=== PATIENT | female | born 1985 | race Caucasian/White ===

== ENCOUNTER 2018-03-09 19:01 | Emergency (ER) | payer OTHER ==
--- NOTE | 2018-03-09 19:58 | EDM.PDOC ---
ED HPI GENERAL MEDICAL PROBLEM - General Chief Complaint: Genitourinary Problem Stated Complaint: BLOOD IN URINE/BACK PAIN Time Seen by Provider: 03/09/18 19:58 Source of Information: Reports: Patient History Limitations: Reports: No Limitations - History of Present Illness INITIAL COMMENTS - FREE TEXT/NARRATIVE: Ulises presents tonight for complaints of dysuria and right sided back pain since this morning. She reports she and her loaded up their vehicle today, drove 8 hours and are up in [place] for vacation this week. She denies fever, chills, nausea, vomiting or voiding blood. Pain Score (Numeric/FACES): 8 - Related Data Allergies Allergy/AdvReac Type Severity Reaction Status Date / Time No Known Allergies Allergy Verified 03/09/18 19:35 Home Meds: Home Meds ALPRAZolam [Xanax] 0.5 mg PO TID 03/09/18 [History] Cariprazine Hydrochloride [Vraylar] 3 mg PO DAILY 03/09/18 [History] Gabapentin [Neurontin] 300 mg PO TID 03/09/18 [History] Omeprazole Magnesium [Prilosec Otc] 40 mg PO DAILY 03/09/18 [History] Past Medical History Gastrointestinal History: Reports: GERD Psychiatric History: Reports: Anxiety, Bipolar Social & Family History - Tobacco Use Smoking Status *Q: Current Every Day Smoker Years of Tobacco use: 15 Packs/Tins Daily: 1 - Caffeine Use Caffeine Use: Reports: Energy Drinks, Soda - Recreational Drug Use Recreational Drug Use: No ED ROS GENERAL - Review of Systems Review Of Systems: See Below Constitutional: Denies: Fever, Chills, Malaise, Weakness HEENT: Reports: No Symptoms Respiratory: Reports: No Symptoms Cardiovascular: Reports: No Symptoms Endocrine: Reports: No Symptoms GI/Abdominal: Denies: Black Stool, Bloody Stool, Constipation, Diarrhea, Nausea , Vomiting : Reports: Dysuria. Denies: Frequency, Hematuria, Incontinence, Irregular Menses, Urinary Retention Musculoskeletal: Reports: Muscle Pain, Muscle Stiffness, Other (right sided back pain) Skin: Reports: No Symptoms Neurological: Reports: No Symptoms Psychiatric: Reports: No Symptoms Hematologic/Lymphatic: Reports: No Symptoms Immunologic: Reports: No Symptoms ED EXAM, GI/ABD - Physical Exam Exam: See Below Text/Narrative:: Ulises presents today with complaints of dysuria and right sided back pain since this morning. She denies fever, chills, nausea or other concerns. LMP 02/23/18 - no issues. General Appearance: Alert, WD/WN, No Apparent Distress Eyes: Bilateral: Normal Appearance, EOMI Throat/Mouth: Normal Inspection, Normal Lips, Normal Teeth, Normal Gums, Normal Oropharynx, Normal Voice, No Airway Compromise Head: Atraumatic, Normocephalic Neck: Normal Inspection, Supple, Non-Tender, Full Range of Motion. No: Lymphadenopathy (R), Lymphadenopathy (L) Respiratory/Chest: No Respiratory Distress, Lungs Clear, Normal Breath Sounds, No Accessory Muscle Use, Chest Non-Tender Cardiovascular: Normal Peripheral Pulses, Regular Rate, Rhythm, No Edema, No Murmur, No Rub GI/Abdominal Exam: Normal Bowel Sounds, Soft, Non-Tender, No Organomegaly, No Distention, No Mass Back Exam: Full Range of Motion, Muscle Spasm, Other (Pain and muscle spasm to right lower back. ). No: CVA Tenderness (R), CVA Tenderness (L) Extremities: Normal Inspection, Normal Range of Motion, Non-Tender, No Pedal Edema, Normal Capillary Refill Neurological: Alert, Oriented, CN II-XII Intact, Normal Cognition, Normal Gait, Normal Reflexes, No Motor/Sensory Deficits Psychiatric: Normal Affect, Normal Mood Skin Exam: Warm, Dry, Intact, Normal Color, No Rash Lymphatic: No Adenopathy Course - Vital Signs Last Recorded V/S: Last Vital Signs Temp 36.1 C 03/09/18 19:34 Pulse 79 03/09/18 19:34 Resp 18 03/09/18 19:34 BP 148/92 H 03/09/18 19:34 Pulse Ox 98 03/09/18 19:34 - Orders/Labs/Meds Orders: Active Orders 24 hr Category Date Time Status UA W/MICROSCOPIC [URIN] Stat Lab 03/09/18 19:00 Ordered Labs: Laboratory Tests 03/09/18 Range/Units 19:00 Urine Color Yellow Urine Appearance Clear Urine pH 6.0 (4.5-8.0) Ur Specific [place] 1.010 (1.008-1.030) Urine Protein Negative (NEGATIVE) mg/dL Urine Glucose (UA) Normal (NEGATIVE) mg/dL Urine Ketones Negative (NEGATIVE) mg/dL Urine Occult Blood Negative (NEGATIVE) Urine Nitrite Negative (NEGATIVE) Urine Bilirubin Negative (NEGATIVE) Urine Urobilinogen Normal (NORMAL) mg/dL Ur Leukocyte Esterase Negative (NEGATIVE) Urine RBC Not seen (0-5) Urine WBC 0-5 (0-5) Ur Epithelial Cells Rare Amorphous Sediment Not seen Urine Bacteria Few Urine Mucus Not seen UA negative for acute infection or RBC. Wet prep positive for clue cells. Bacteria vaginosis Meds: Medications Discontinued Medications Generic Name Dose Route Start Last Admin Trade Name Mitch PRN Reason Stop Dose Admin Hydrocodone Bitart/Acetaminophen 1 tab 03/09/18 20:11 03/09/18 20:16 [place] 325-5 Mg PO 03/09/18 20:12 1 tab ONETIME ONE Administration Cyclobenzaprine HCl 10 mg 03/09/18 20:12 03/09/18 20:16 Flexeril PO 03/09/18 20:13 10 mg ONETIME ONE Administration Metronidazole 500 mg 03/09/18 20:42 03/09/18 20:50 Metronidazole PO 03/09/18 20:43 500 mg ONETIME ONE Administration - Re-Assessments/Exams Free Text/Narrative Re-Assessment/Exam: 03/09/18 20:45 Reviewed lab work, presentation. Patient verbalized improvement of pain/muscle spasm to back. All her and her husbands questions were answered. She is in agreement with plan. Departure - Departure Time of Disposition: 20:47 Disposition: Home, Self-Care 01 Condition: Good Clinical Impression: Bacterial vaginosis, Spasm of muscle of lower back - Discharge Information Referrals: PCP,None [Primary Care Provider] - Forms: ED Department Discharge Additional Instructions: You have been evaluated and treated for bacterial vaginosis and muscle spasm of your lower back. Take metronidazole 500mg by mouth twice a day for 7 days (first dose in ER) for bacterial vaginosis. A prescription is provided for diflucan 150mg PO for signs of yeast infection. Take cyclobenzaprine 10mg PO three times a day for muscle spasm as needed. Take ibuprofen 800mg PO three times a day as needed for pain. Take with food. Stretch, apply heat/ice to back to help with pain. Return for worsening, issues or concerns. - My Orders Last 24 Hours: My Active Orders 03/09/18 19:00 UA W/MICROSCOPIC [URIN] Stat - Assessment/Plan Last 24 Hours: My Active Orders 03/09/18 19:00 UA W/MICROSCOPIC [URIN] Stat Assessment:: Spasm of muscle of lower back Bacterial vaginosis Plan: Patient evaluated and treated for bacterial vaginosis and muscle spasm of lower back. Take metronidazole 500mg by mouth twice a day for 7 days (first dose in ER) for bacterial vaginosis. A prescription is provided for diflucan 150mg PO for signs of yeast infection. Take cyclobenzaprine 10mg PO three times a day for muscle spasm as needed. Take ibuprofen 800mg PO three times a day as needed for pain. Take with food. Stretch, apply heat/ice to back to help with pain. Push oral fluids to stay hydrated. Return for worsening, issues or concerns.
[2018-03-09] MEDS ORDERED: Acetaminophen/HYDROcodone 325-5 MG Tab PO ONE (20:11)
[2018-03-09] MEDS ORDERED: Cyclobenzaprine 10 MG Tab PO ONE (20:12)
[2018-03-09] MEDS ORDERED: metroNIDAZOLE 250 MG Tab PO ONE (20:42)
== END 2018-03-09 21:12 | disposition home or self-care (01) ==
LOC: JP.ED 19:01 → EDBD 19:01 → JP.ED 21:12
DX: N76.0 Acute vaginitis (principal); M62.830 Muscle spasm of back; F17.210 Nicotine dependence, cigarettes, uncomplicated; K21.9 Gastro-esophageal reflux disease without esophagitis; F41.9 Anxiety disorder, unspecified; F31.9 Bipolar disorder, unspecified; Z79.899 Other long term (current) drug therapy
CPT/HCPCS: 81001; 87210; 99284; A9270